=== PATIENT | male | born 1990 | race Hispanic/Latino ===

== ENCOUNTER 2019-01-06 21:34 | Emergency (ER) | payer SELFPAY ==
[~2019-01-06] VITALS: Ht 152.4 cm; Wt 56.8 kg
[2019-01-06 22:27] LABS: HEMATOCRIT 49.6 % (39.0-50.0); HEMOGLOBIN 16.6 g/dl (14.0-18.0); MEAN CELL VOLUME 87.2 fL CALC (80.0-100.0); MEAN CORPUSCULAR HGB 29.2 pG CALC (26.0-32.0); MEAN CORPUSCULAR HGB CONC 33.5 g/L CALC (32.0-36.0); NEUT# 3.04 thou/uL (1.82-7.42); RED BLOOD COUNT 5.69 mill/uL (4.70-6.10); RED CELL DISTRI WIDTH 13.2 % (11.5-15.5)
[2019-01-06 22:39] LABS: ALBUMIN 4.9 g/dL (3.2-5.0); ALKALINE PHOSPHATASE 142 u/l (38-126); ANION GAP 20 (6-22 (CALC)); BILIRUBIN, TOTAL 0.6 mg/dL (0.0-1.4); BUN 11 mg/dL (9-20); BUN/CREATININE RATIO 11 (12-20 (CALC)); CARBON DIOXIDE 24 mmol/l (22-30); CHLORIDE 106 mmol/l (95-108); GFR > 60 ML/MIN (>=60 (CALC)); GFR FOR AFR.AMER. > 60 ML/MIN (>=60 (CALC)); POTASSIUM 4.2 mmol/l (3.5-5.1); SGOT/AST 49 u/l (17-59); SODIUM 146 mmol/l (137-146); TOTAL PROTEIN 8.1 g/dL (6.3-8.2)
[2019-01-06 22:52] LABS: ETHYL ALCOHOL 435 mg/dl (0-30)
[2019-01-06 23:05] LABS: BARBITURATES NEGATIVE (NEGATIVE); COCAINE NEGATIVE (NEGATIVE); METHADONE NEGATIVE (NEGATIVE); OXCYCODONE NEGATIVE (NEGATIVE); TETRAHYDROCANNABIONOL NEGATIVE (NEGATIVE); TRICYLIC ANTIDEPRESSANTS NEGATIVE (NEGATIVE)
[2019-01-07 03:46] VITALS: BP 124/83
== END 2019-01-07 04:06 | DRG 897 ==
LOC: ED 21:34
PROVIDERS: Family Medicine
DX: F10.129 Alcohol abuse with intoxication, unspecified (principal); S00.81XA Abrasion of other part of head, initial encounter; S00.31XA Abrasion of nose, initial encounter; S00.511A Abrasion of lip, initial encounter; W17.89XA Other fall from one level to another, initial encounter

== ENCOUNTER 2019-08-10 10:58 | Emergency (ER) | payer SELFPAY ==
[~2019-08-10] VITALS: Ht 167.6 cm; Wt 75.0 kg
[2019-08-10 11:54] LABS: HEMATOCRIT 48.3 % (39.0-50.0); HEMOGLOBIN 16.1 g/dl (14.0-18.0); IMMATURE GRANULOCYTES 0.4 % (0.0-5.0); MEAN CORPUSCULAR HGB 27.2 pG CALC (26.0-32.0); MEAN CORPUSCULAR HGB CONC 33.3 g/L CALC (32.0-36.0); NEUT# 3.49 thou/uL (1.82-7.42); RED BLOOD COUNT 5.93 mill/uL (4.70-6.10)
[2019-08-10 11:57] LABS: MEAN CELL VOLUME 81.5 fL CALC (80.0-100.0)
[2019-08-10 12:17] LABS: ALBUMIN 4.7 g/dL (3.2-5.0); ALKALINE PHOSPHATASE 195 u/l (38-126); ANION GAP 14 (6-22 (CALC)); BUN 9 mg/dL (9-20); BUN/CREATININE RATIO 12 (12-20 (CALC)); CARBON DIOXIDE 27 mmol/l (22-30); CHLORIDE 102 mmol/l (95-108); CREATININE 0.7 mg/dL (0.7-1.3); GFR > 60 ML/MIN (>=60 (CALC)); GFR FOR AFR.AMER. > 60 ML/MIN (>=60 (CALC)); LIPASE 70 u/l (23-300); POTASSIUM 4.4 mmol/l (3.5-5.1); SGOT/AST 45 u/l (17-59); SODIUM 139 mmol/l (137-146); TOTAL PROTEIN 7.9 g/dL (6.3-8.2)
[2019-08-10 12:25] LABS: BILIRUBIN, TOTAL 1.9 mg/dL (0.0-1.4)
[2019-08-10] MEDS ORDERED: ZOFRAN4 M1 PO (14:30)
[2019-08-10 14:48] VITALS: BP 123/79
== END 2019-08-10 15:01 | disposition home or self-care (01) | DRG 392 ==
LOC: ED 10:58
DX: R11.2 Nausea with vomiting, unspecified (principal); R19.7 Diarrhea, unspecified; R74.8 Abnormal levels of other serum enzymes; F10.10 Alcohol abuse, uncomplicated
CPT/HCPCS: Q9967

== ENCOUNTER 2021-09-26 23:17 | Emergency (ER) | payer SELFPAY ==
[~2021-09-26] VITALS: Ht 167.6 cm; Wt 71.3 kg
[~2021-09-26 23:17] MED LIST: ZOFRAN4 M1 PO
[2021-09-27 00:35] LABS: HEMATOCRIT 46.6 % (39.0-50.0); HEMOGLOBIN 15.3 g/dl (14.0-18.0); IMMATURE GRANULOCYTES 0.2 % (0.0-5.0); MEAN CORPUSCULAR HGB 28.9 pG CALC (26.0-32.0); MEAN CORPUSCULAR HGB CONC 32.8 g/dL CAL (32.0-36.0); NEUT# 2.96 thou/uL (1.82-7.42); RED BLOOD COUNT 5.3 mill/uL (4.70-6.10); RED CELL DISTRI WIDTH 14.5 % (11.5-15.5)
[2021-09-27 00:38] LABS: MEAN CELL VOLUME 87.9 fL CALC (80.0-100.0)
[2021-09-27 00:40] LABS: ALKALINE PHOSPHATASE 225 u/l (38-126); BUN 15 mg/dL (9-20); BUN/CREATININE RATIO 14 (12-20 (CALC)); CHLORIDE 109 mmol/l (95-108); CREATININE 1.1 mg/dL (0.7-1.3); GFR > 60 ML/MIN (>=60 (CALC)); GFR FOR AFR.AMER. > 60 ML/MIN (>=60 (CALC)); POTASSIUM 3.9 mmol/l (3.5-5.1); TOTAL PROTEIN 8.9 g/dL (6.3-8.2)
[2021-09-27 00:56] LABS: ANION GAP 20 (6-22 (CALC)); BILIRUBIN, TOTAL 0.8 mg/dL (0.0-1.4); CARBON DIOXIDE 21 mmol/l (22-30); SGOT/AST 126 u/l (17-59); SODIUM 146 mmol/l (137-146)
[2021-09-27 00:57] LABS: ETHYL ALCOHOL 400 mg/dl (0-30)
[2021-09-27 01:55] VITALS: BP 119/69
== END 2021-09-27 02:00 | disposition home or self-care (01) | DRG 605 ==
LOC: ED 23:17
PROVIDERS: Family Medicine
DX: S01.01XA Laceration without foreign body of scalp, initial encounter (principal); F10.129 Alcohol abuse with intoxication, unspecified; W19.XXXA Unspecified fall, initial encounter

== ENCOUNTER 2024-05-04 22:18 | Emergency (ER) | payer SELFPAY ==
[~2024-05-04] VITALS: Ht 167.6 cm; Wt 65.0 kg
[~2024-05-04 22:18] MED LIST changes: +BACTRIM DS1 TAB PO
[2024-05-04 23:00] VITALS: BP 125/90
[2024-05-04] MEDS ORDERED: SODIUM CHLORIDE 0.9% 1,000 ML IV ONE (23:05)
[2024-05-04 23:37] LABS: BASO% 0.6 % (0-3); EOS% 2.3 % (0-8); IMMATURE GRANULOCYTES 0.3 % (0.0-5.0); LYMPH% 38.2 % (15-41); MEAN CORPUSCULAR HGB 29.1 pG CALC (26.0-32.0); MEAN CORPUSCULAR HGB CONC 34.2 g/dL CAL (32.0-36.0); NEUT# 3.3 thou/uL (1.82-7.42); NEUT% 49.6 % (42-76); RED BLOOD COUNT 6.22 mill/uL (4.70-6.10); RED CELL DISTRI WIDTH 12.8 % (11.5-15.5)
[2024-05-04 23:50] LABS: ALKALINE PHOSPHATASE 147 u/l (38-126); ANION GAP 17 (6-22 (CALC)); BILIRUBIN, TOTAL 0.8 mg/dL (0.2-1.3); BUN 7 mg/dL (9-20); BUN/CREATININE RATIO 8 (12-20 (CALC)); CARBON DIOXIDE 23 mmol/l (22-30); CHLORIDE 106 mmol/l (95-108); CPK 202 u/l (55-170); CREATININE 0.8 mg/dL (0.7-1.3); ESTIMATED GFR 121 ML/MIN (>=90 (CALC)); POTASSIUM 3.9 mmol/l (3.5-5.1); SGOT/AST 66 u/l (17-59); SODIUM 142 mmol/l (137-146); TOTAL PROTEIN 9.1 g/dL (6.3-8.2)
[2024-05-04 23:51] LABS: HEMATOCRIT 52.9 % (39.0-50.0); HEMOGLOBIN 18.1 g/dl (14.0-18.0)
[2024-05-04] MEDS ORDERED: PROMETHAZINE HCL 25 MG/ML AMP IV ONE (23:55)
[2024-05-04 23:59] LABS: ETHYL ALCOHOL 294 mg/dl (0-30)
[2024-05-05 03:43] LABS: URINE BILIRUBIN - DIPSTICK Negative (NEGATIVE); URINE BLOOD DIPSTICK Negative (NEGATIVE); URINE GLUCOSE - DIPSTICK Negative (NEGATIVE); URINE KETONE Negative (NEGATIVE); URINE LEUK ESTERASE Negative (NEGATIVE); URINE NITRITE - DIPSTICK Negative (Negative); URINE PH 5.5 (4.5-8.0); URINE PROTEIN - DIPSTICK Negative (NEG-TRACE); URINE UROBILINOGEN - DIPSTICK 0.2 E.U./dL (0.2)
[2024-05-05 03:45] LABS: URINE COLOR Yellow
[2024-05-05] MEDS ORDERED: FAMOTIDINE 20 MG/TAB PO ONE (03:55)
[2024-05-05] MEDS ORDERED: ALUM & MAG HYDROX-SIMETHICONE 30 ML PO ONE (03:55)
[2024-05-05 04:00] VITALS: BP 134/78
== END 2024-05-05 04:21 | disposition home or self-care (01) | DRG 313 ==
LOC: ED 22:18
PROVIDERS: Internal Medicine
DX: R07.9 Chest pain, unspecified (principal); R74.8 Abnormal levels of other serum enzymes